=== PATIENT | male | born 1980 | race Caucasian/White ===

== ENCOUNTER 2020-12-05 16:33 | Inpatient (IN) | payer MEDICARE, OTHER ==
[~2020-12-05] VITALS: Ht 182.9 cm; Wt 99.3 kg
[2020-12-06 12:27] VITALS: BP 125/75
[2020-12-06 12:52] VITALS: BP 125/75
[2020-12-06] MEDS ORDERED: MELATONIN 3 MG TABLET PO PRN (13:45)
[2020-12-06] MEDS ORDERED: ACETAMINOPHEN 325 MG TABLET PO PRN (13:45)
[2020-12-06] MEDS ORDERED: DEXTROSE 50%-WATER 25 GM/50 ML SYRINGE IVP PRN (13:45)
[2020-12-06 16:30] VITALS: BP 120/74
[2020-12-06] MEDS: CADEXOMER IODINE 0.9% 40 GM GEL TP SCH ×2 (16:44→21:02)
[2020-12-06] MEDS: ALBUTEROL SULFATE HFA 90 MCG/PUFF 8 GM INHALER IH SCH (16:47)
[2020-12-06] MEDS: INSULIN LISPRO 100 UNITS/ML SQ PRN ×2 (18:03→21:37)
[2020-12-06] MEDS ORDERED: SODIUM CHLORIDE 0.9% 250 ML IV ONE (18:26)
[2020-12-06] MEDS: PIPERACILLIN SODIUM/TAZOBACTAM 4.5 GM in DEXTROSE 5%-WATER 100 ML IV SCH (18:33)
[2020-12-06 19:57] LABS: GLUCOMETER DEV NAME(LOC) 2WR.2B; GLUCOSE,POINT OF CARE 156 MG/DL (70-110)
[2020-12-06] MEDS: BUDESONIDE/FORMOTEROL FUMARATE 80-4.5 MCG/PUFF 10.2 GM INHALER IH SCH (20:59)
[2020-12-06] MEDS: DIAZEPAM 5 MG TABLET PO SCH (20:59)
[2020-12-06] MEDS: BENZTROPINE MESYLATE 2 MG TABLET PO SCH (21:00)
[2020-12-06] MEDS ORDERED: SENNA 187 MG TABLET PO SCH (21:00)
[2020-12-06] MEDS: PROPRANOLOL HCL 40 MG TABLET PO SCH (21:00)
[2020-12-06] MEDS: LamoTRIgine 100 MG TABLET PO SCH (21:01)
[2020-12-06] MEDS: TOPIRAMATE 100 MG TABLET PO SCH (21:01)
[2020-12-06] MEDS: SENNA 187 MG TABLET PO SCH (21:03)
[2020-12-07] MEDS: 0.9% SODIUM CHLORIDE 10 ML SYRINGE IVP SCH ×4 (00:22→23:25)
[2020-12-07] MEDS: ALBUTEROL SULFATE HFA 90 MCG/PUFF 8 GM INHALER IH SCH ×5 (00:23→23:23)
[2020-12-07] MEDS: PIPERACILLIN SODIUM/TAZOBACTAM 4.5 GM in DEXTROSE 5%-WATER 100 ML IV SCH ×4 (01:03→22:14)
[2020-12-07 03:10] LABS: GLUCOMETER DEV NAME(LOC) 2WR.2B; GLUCOSE,POINT OF CARE 156 MG/DL (70-110)
[2020-12-07 05:20] VITALS: BP 108/71
[2020-12-07 05:45] LABS: GLUCOMETER DEV NAME(LOC) 2WR.2B; GLUCOSE,POINT OF CARE 120 MG/DL (70-110)
[2020-12-07] MEDS: MetFORMIN HCL 500 MG ER TABLET PO SCH (07:37)
[2020-12-07] MEDS: PROPRANOLOL HCL 40 MG TABLET PO SCH ×2 (07:37→21:31)
[2020-12-07] MEDS: DIAZEPAM 5 MG TABLET PO SCH ×2 (07:37→21:31)
[2020-12-07] MEDS: INSULIN GLARGINE,HUM.REC.ANLOG 100 UNITS/ML SQ SCH (07:46)
[2020-12-07 07:54] LABS: BASOPHILS % (AUTO) 0.7 % (0.0-2.0); EOSINOPHILS % (AUTO) 2.4 % (1.0-6.0); HEMATOCRIT 37.8 % (41-53); HEMOGLOBIN 12.4 g/dL (13.5-17.5); LYMPHOCYTES # (AUTO) 1.7 K/uL (1.0-4.8); MEAN CORPUSCULAR HGB CONC 32.8 G/dL (31.0-37.0); MEAN CORPUSCULAR VOLUME 85 fL (80-100); MONOCYTES # (AUTO) 0.3 K/uL (0.1-1.0); MONOCYTES % (AUTO) 7.9 % (2.0-9.0); NEUTROPHILS # (AUTO) 1.2 K/uL (1.8-7.7); PLATELET COUNT (AUTO) 302 K/uL (150-450); RED BLOOD CELL COUNT(AUTO) 4.44 MIL/uL (4.50-5.90); RED CELL DISTRIBUTION WIDTH 17.2 % (11.5-14.5)
[2020-12-07] MEDS: BUDESONIDE/FORMOTEROL FUMARATE 80-4.5 MCG/PUFF 10.2 GM INHALER IH SCH ×2 (07:55→21:32)
[2020-12-07 08:24] LABS: ALANINE AMINOTRANSFERASE 37 U/L (12-78); ALBUMIN 3.3 g/dL (3.4-5.0); ALKALINE PHOSPHATASE 76 U/L (46-116); ANION GAP 12 mmol/L (8-16); ASPARTATE AMINOTRANSFERASE 16 U/L (15-37); BILIRUBIN,TOTAL 0.5 mg/dL (0.1-1.0); CALCIUM, TOTAL 8.8 mg/dL (8.8-10.5); CARBON DIOXIDE 23 mmol/L (22-29); CHLORIDE 107 mmol/L (98-107); CREATININE 0.81 mg/dL (0.60-1.30); GLOMERULAR FILTR. RATE CALC > 60 mL/min (>60); GLUCOSE,RANDOM 122 mg/dL (70-110); POTASSIUM 3.9 mmol/L (3.5-5.1); SODIUM SERUM 142 mmol/L (136-145); TOTAL PROTEIN, SERUM 7.1 g/dL (6.4-8.2); UREA NITROGEN, BLOOD 5 mg/dL (7-18)
[2020-12-07] MEDS: NICOTINE 14 MG/24 HOUR PATCH TD SCH (08:25)
[2020-12-07 09:00] VITALS: BP 112/69
[2020-12-07 12:33] LABS: GLUCOMETER DEV NAME(LOC) 2WR.2B; GLUCOSE,POINT OF CARE 124 MG/DL (70-110)
[2020-12-07] MEDS: CADEXOMER IODINE 0.9% 40 GM GEL TP SCH ×3 (12:42→21:32)
[2020-12-07 15:52] VITALS: BP 129/84
[2020-12-07] MEDS ORDERED: CALCIUM CARBONATE 500 MG CHEWABLE TABLET CHEW PRN (16:45)
[2020-12-07 17:16] LABS: GLUCOMETER DEV NAME(LOC) 2WR.1C; GLUCOSE,POINT OF CARE 122 MG/DL (70-110)
[2020-12-07] MEDS: ONDANSETRON HCL 4 MG TABLET PO PRN (17:34)
[2020-12-07 19:30] VITALS: BP 135/68
[2020-12-07] MEDS: BENZTROPINE MESYLATE 2 MG TABLET PO SCH (21:30)
[2020-12-07] MEDS: TOPIRAMATE 100 MG TABLET PO SCH (21:31)
[2020-12-07] MEDS: LamoTRIgine 100 MG TABLET PO SCH (21:31)
[2020-12-07] MEDS: SENNA 187 MG TABLET PO SCH (21:31)
[2020-12-07 22:33] LABS: GLUCOMETER DEV NAME(LOC) 2WR.2B; GLUCOSE,POINT OF CARE 139 MG/DL (70-110)
[2020-12-07 23:55] VITALS: BP 130/72
[2020-12-08] MEDS: ALBUTEROL SULFATE HFA 90 MCG/PUFF 8 GM INHALER IH SCH ×3 (05:43→18:12)
[2020-12-08] MEDS: PIPERACILLIN SODIUM/TAZOBACTAM 4.5 GM in DEXTROSE 5%-WATER 100 ML IV SCH ×3 (05:44→22:07)
[2020-12-08 05:56] LABS: GLUCOMETER DEV NAME(LOC) 2WR.2B; GLUCOSE,POINT OF CARE 129 MG/DL (70-110)
[2020-12-08] MEDS: MetFORMIN HCL 500 MG ER TABLET PO SCH (07:25)
[2020-12-08] MEDS: ASCORBIC ACID 500 MG TABLET PO SCH ×2 (07:26→20:21)
[2020-12-08] MEDS: MULTIVITAMINS WITH MINERALS, THERAPEUTIC TABLET PO SCH (07:27)
[2020-12-08] MEDS: DIAZEPAM 5 MG TABLET PO SCH ×2 (07:27→20:20)
[2020-12-08] MEDS: PROPRANOLOL HCL 40 MG TABLET PO SCH ×2 (07:27→20:19)
[2020-12-08] MEDS: ZINC SULFATE 220 MG CAPSULE PO SCH (07:28)
[2020-12-08] MEDS: 0.9% SODIUM CHLORIDE 10 ML SYRINGE IVP SCH ×2 (07:35→15:29)
[2020-12-08] MEDS: BUDESONIDE/FORMOTEROL FUMARATE 80-4.5 MCG/PUFF 10.2 GM INHALER IH SCH ×2 (07:35→20:19)
[2020-12-08] MEDS: NICOTINE 14 MG/24 HOUR PATCH TD SCH (07:35)
[2020-12-08] MEDS: INSULIN GLARGINE,HUM.REC.ANLOG 100 UNITS/ML SQ SCH (08:15)
[2020-12-08 09:18] VITALS: BP 95/61
[2020-12-08] MEDS: ONDANSETRON HCL 4 MG TABLET PO PRN (10:34)
[2020-12-08] MEDS: CADEXOMER IODINE 0.9% 40 GM GEL TP SCH ×3 (14:12→20:22)
[2020-12-08 16:17] LABS: GLUCOMETER DEV NAME(LOC) 2WR.1C; GLUCOSE,POINT OF CARE 110 MG/DL (70-110)
[2020-12-08 16:36] VITALS: BP 119/79
[2020-12-08 17:49] LABS: GLUCOMETER DEV NAME(LOC) 2WR.2B; GLUCOSE,POINT OF CARE 105 MG/DL (70-110)
[2020-12-08] MEDS: BENZTROPINE MESYLATE 2 MG TABLET PO SCH (20:19)
[2020-12-08] MEDS: TOPIRAMATE 100 MG TABLET PO SCH (20:20)
[2020-12-08] MEDS: SENNA 187 MG TABLET PO SCH (20:20)
[2020-12-08] MEDS: LamoTRIgine 100 MG TABLET PO SCH (20:20)
[2020-12-08] MEDS: TAMSULOSIN HCL 0.4 MG CAPSULE PO SCH (21:55)
[2020-12-08] MEDS: FAMOTIDINE 20 MG TABLET PO SCH (21:56)
[2020-12-08] MEDS: INSULIN LISPRO 100 UNITS/ML SQ PRN (21:59)
[2020-12-08 22:17] VITALS: BP 122/66
[2020-12-08 23:21] LABS: GLUCOMETER DEV NAME(LOC) 2WR.1C; GLUCOSE,POINT OF CARE 154 MG/DL (70-110)
[2020-12-09] MEDS: 0.9% SODIUM CHLORIDE 10 ML SYRINGE IVP SCH ×4 (01:13→23:10)
[2020-12-09] MEDS: ALBUTEROL SULFATE HFA 90 MCG/PUFF 8 GM INHALER IH SCH ×6 (01:14→23:25)
[2020-12-09 04:12] VITALS: BP 106/65
[2020-12-09 05:54] LABS: GLUCOMETER DEV NAME(LOC) 2WR.2B; GLUCOSE,POINT OF CARE 143 MG/DL (70-110)
[2020-12-09] MEDS ORDERED: SODIUM CHLORIDE 0.9% 100 ML ONE (05:57)
[2020-12-09] MEDS: PIPERACILLIN SODIUM/TAZOBACTAM 4.5 GM in DEXTROSE 5%-WATER 100 ML IV SCH ×3 (06:00→22:32)
[2020-12-09] MEDS: ASCORBIC ACID 500 MG TABLET PO SCH ×2 (07:47→20:38)
[2020-12-09] MEDS: MULTIVITAMINS WITH MINERALS, THERAPEUTIC TABLET PO SCH (07:47)
[2020-12-09] MEDS: DIAZEPAM 5 MG TABLET PO SCH ×2 (07:48→20:38)
[2020-12-09] MEDS: PROPRANOLOL HCL 40 MG TABLET PO SCH ×2 (07:48→20:39)
[2020-12-09] MEDS: FAMOTIDINE 20 MG TABLET PO SCH ×2 (07:48→20:39)
[2020-12-09] MEDS: ZINC SULFATE 220 MG CAPSULE PO SCH (07:48)
[2020-12-09] MEDS: MetFORMIN HCL 500 MG ER TABLET PO SCH (07:48)
[2020-12-09] MEDS: BUDESONIDE/FORMOTEROL FUMARATE 80-4.5 MCG/PUFF 10.2 GM INHALER IH SCH ×2 (07:49→20:39)
[2020-12-09] MEDS: NICOTINE 14 MG/24 HOUR PATCH TD SCH (07:50)
[2020-12-09] MEDS: INSULIN LISPRO 100 UNITS/ML SQ PRN (07:59)
[2020-12-09] MEDS: INSULIN GLARGINE,HUM.REC.ANLOG 100 UNITS/ML SQ SCH (08:00)
[2020-12-09] MEDS: CADEXOMER IODINE 0.9% 40 GM GEL TP SCH ×3 (08:47→20:41)
[2020-12-09 08:59] VITALS: BP 104/65
[2020-12-09 09:22] LABS: PROTHROMBIN TIME 11.1 SEC (9.4-11.6)
[2020-12-09 12:55] LABS: GLUCOMETER DEV NAME(LOC) 2WR.2B; GLUCOSE,POINT OF CARE 118 MG/DL (70-110)
[2020-12-09 16:06] VITALS: BP 120/73
[2020-12-09] MEDS ORDERED: *PATIENT'S OWN MED [ENTER DRUG, DOSE, FREQUENCY IN COMMENTS] CLINICAL ONE (16:15)
[2020-12-09 20:20] VITALS: BP 132/90
[2020-12-09] MEDS: TAMSULOSIN HCL 0.4 MG CAPSULE PO SCH (20:38)
[2020-12-09] MEDS: LamoTRIgine 100 MG TABLET PO SCH (20:38)
[2020-12-09] MEDS: BENZTROPINE MESYLATE 2 MG TABLET PO SCH (20:39)
[2020-12-09] MEDS: TOPIRAMATE 100 MG TABLET PO SCH (20:39)
[2020-12-09] MEDS: SENNA 187 MG TABLET PO SCH (20:41)
[2020-12-10 03:00] VITALS: BP 108/65
[2020-12-10 05:21] LABS: GLUCOMETER DEV NAME(LOC) 2WR.1C; GLUCOSE,POINT OF CARE 115 MG/DL (70-110)
[2020-12-10 05:21] LABS: GLUCOMETER DEV NAME(LOC) 2WR.1C; GLUCOSE,POINT OF CARE 105 MG/DL (70-110)
[2020-12-10] MEDS: PIPERACILLIN SODIUM/TAZOBACTAM 4.5 GM in DEXTROSE 5%-WATER 100 ML IV SCH ×3 (05:53→22:24)
[2020-12-10] MEDS: ALBUTEROL SULFATE HFA 90 MCG/PUFF 8 GM INHALER IH SCH ×4 (05:53→23:41)
[2020-12-10 06:07] LABS: GLUCOMETER DEV NAME(LOC) 2WR.1C; GLUCOSE,POINT OF CARE 139 MG/DL (70-110)
[2020-12-10 06:36] LABS: BASOPHILS % (AUTO) 0.6 % (0.0-2.0); EOSINOPHILS % (AUTO) 4.4 % (1.0-6.0); HEMATOCRIT 39.5 % (41-53); HEMOGLOBIN 12.9 g/dL (13.5-17.5); LYMPHOCYTES % (AUTO) 47.5 % (22.0-44.0); MEAN CORPUSCULAR HEMOGLOBIN 28.1 pg (26.0-34.0); MEAN CORPUSCULAR HGB CONC 32.8 G/dL (31.0-37.0); MEAN CORPUSCULAR VOLUME 86 fL (80-100); MONOCYTES # (AUTO) 0.4 K/uL (0.1-1.0); MONOCYTES % (AUTO) 8.5 % (2.0-9.0); NEUTROPHILS # (AUTO) 1.6 K/uL (1.8-7.7); PLATELET COUNT (AUTO) 284 K/uL (150-450); RED BLOOD CELL COUNT(AUTO) 4.61 MIL/uL (4.50-5.90); RED CELL DISTRIBUTION WIDTH 17.3 % (11.5-14.5)
[2020-12-10 06:53] LABS: ALANINE AMINOTRANSFERASE 38 U/L (12-78); ALBUMIN 3.3 g/dL (3.4-5.0); ALKALINE PHOSPHATASE 76 U/L (46-116); ANION GAP 5 mmol/L (8-16); ASPARTATE AMINOTRANSFERASE 15 U/L (15-37); BILIRUBIN,TOTAL 0.5 mg/dL (0.1-1.0); CALCIUM, TOTAL 9.1 mg/dL (8.8-10.5); CARBON DIOXIDE 25 mmol/L (22-29); CHLORIDE 106 mmol/L (98-107); GLOMERULAR FILTR. RATE CALC > 60 mL/min (>60); GLUCOSE,RANDOM 135 mg/dL (70-110); POTASSIUM 3.9 mmol/L (3.5-5.1); SODIUM SERUM 136 mmol/L (136-145); UREA NITROGEN, BLOOD 9 mg/dL (7-18)
[2020-12-10] MEDS: INSULIN GLARGINE,HUM.REC.ANLOG 100 UNITS/ML SQ SCH (08:12)
[2020-12-10] MEDS: EMPAGLIFLOZIN 10 MG PO SCH (08:14)
[2020-12-10] MEDS: MetFORMIN HCL 500 MG ER TABLET PO SCH (08:14)
[2020-12-10] MEDS: MULTIVITAMINS WITH MINERALS, THERAPEUTIC TABLET PO SCH (08:14)
[2020-12-10] MEDS: DIAZEPAM 5 MG TABLET PO SCH ×2 (08:14→20:43)
[2020-12-10] MEDS: BUDESONIDE/FORMOTEROL FUMARATE 80-4.5 MCG/PUFF 10.2 GM INHALER IH SCH ×2 (08:14→20:44)
[2020-12-10] MEDS: ZINC SULFATE 220 MG CAPSULE PO SCH (08:15)
[2020-12-10] MEDS: PROPRANOLOL HCL 40 MG TABLET PO SCH ×2 (08:15→20:44)
[2020-12-10] MEDS: ASCORBIC ACID 500 MG TABLET PO SCH ×2 (08:15→20:44)
[2020-12-10] MEDS: FAMOTIDINE 20 MG TABLET PO SCH ×2 (08:15→20:43)
[2020-12-10] MEDS: NICOTINE 14 MG/24 HOUR PATCH TD SCH (08:20)
[2020-12-10] MEDS: 0.9% SODIUM CHLORIDE 10 ML SYRINGE IVP SCH ×3 (08:21→23:41)
[2020-12-10 09:27] VITALS: BP 127/56
[2020-12-10 12:48] LABS: GLUCOMETER DEV NAME(LOC) 2WR.1C; GLUCOSE,POINT OF CARE 119 MG/DL (70-110)
[2020-12-10 16:00] VITALS: BP 104/60
[2020-12-10 18:17] LABS: GLUCOMETER DEV NAME(LOC) 2WR.2B; GLUCOSE,POINT OF CARE 89 MG/DL (70-110)
[2020-12-10] MEDS: CHLORHEXIDINE GLUCONATE 4% 118 ML TOPICAL LIQUID TP SCH (18:47)
[2020-12-10 20:30] VITALS: BP 131/80
[2020-12-10] MEDS: LamoTRIgine 100 MG TABLET PO SCH (20:44)
[2020-12-10] MEDS: SENNA 187 MG TABLET PO SCH (20:44)
[2020-12-10] MEDS: TAMSULOSIN HCL 0.4 MG CAPSULE PO SCH (20:44)
[2020-12-10] MEDS: BENZTROPINE MESYLATE 2 MG TABLET PO SCH (20:44)
[2020-12-10] MEDS: TOPIRAMATE 100 MG TABLET PO SCH (20:44)
[2020-12-10 21:58] LABS: GLUCOMETER DEV NAME(LOC) 2WR.2B; GLUCOSE,POINT OF CARE 102 MG/DL (70-110)
[2020-12-10 23:51] VITALS: BP 109/47
[2020-12-11 05:53] LABS: GLUCOMETER DEV NAME(LOC) 2WR.2B; GLUCOSE,POINT OF CARE 121 MG/DL (70-110)
[2020-12-11] MEDS: ALBUTEROL SULFATE HFA 90 MCG/PUFF 8 GM INHALER IH SCH ×4 (06:21→23:03)
[2020-12-11] MEDS: PIPERACILLIN SODIUM/TAZOBACTAM 4.5 GM in DEXTROSE 5%-WATER 100 ML IV SCH ×3 (06:22→22:08)
[2020-12-11 07:08] VITALS: BP 112/75
[2020-12-11] MEDS: ASCORBIC ACID 500 MG TABLET PO SCH ×2 (07:48→20:22)
[2020-12-11] MEDS: FAMOTIDINE 20 MG TABLET PO SCH ×2 (07:48→20:22)
[2020-12-11] MEDS: 0.9% SODIUM CHLORIDE 10 ML SYRINGE IVP SCH ×3 (07:48→23:03)
[2020-12-11] MEDS: EMPAGLIFLOZIN 10 MG PO SCH (07:49)
[2020-12-11] MEDS: ZINC SULFATE 220 MG CAPSULE PO SCH (07:49)
[2020-12-11] MEDS: MULTIVITAMINS WITH MINERALS, THERAPEUTIC TABLET PO SCH (07:49)
[2020-12-11] MEDS: DIAZEPAM 5 MG TABLET PO SCH ×2 (07:49→20:23)
[2020-12-11] MEDS: PROPRANOLOL HCL 40 MG TABLET PO SCH ×2 (07:50→20:23)
[2020-12-11] MEDS: MetFORMIN HCL 500 MG ER TABLET PO SCH (07:50)
[2020-12-11] MEDS: BUDESONIDE/FORMOTEROL FUMARATE 80-4.5 MCG/PUFF 10.2 GM INHALER IH SCH ×2 (07:50→20:23)
[2020-12-11] MEDS: NICOTINE 14 MG/24 HOUR PATCH TD SCH (07:51)
[2020-12-11] MEDS: INSULIN GLARGINE,HUM.REC.ANLOG 100 UNITS/ML SQ SCH (07:53)
[2020-12-11] MEDS ORDERED: CADEXOMER IODINE 0.9% 40 GM GEL TP SCH (09:00)
[2020-12-11] MEDS: PALIPERIDONE 6 MG ER TABLET PO SCH (11:33)
[2020-12-11 13:31] LABS: GLUCOMETER DEV NAME(LOC) 2WR.2B; GLUCOSE,POINT OF CARE 111 MG/DL (70-110)
[2020-12-11] MEDS ORDERED: SODIUM CHLORIDE 0.9% 100 ML ONE (15:33)
[2020-12-11 16:23] VITALS: BP 132/89
[2020-12-11 17:47] LABS: GLUCOMETER DEV NAME(LOC) 2WR.2B; GLUCOSE,POINT OF CARE 125 MG/DL (70-110)
[2020-12-11] MEDS: CHLORHEXIDINE GLUCONATE 4% 118 ML TOPICAL LIQUID TP SCH (18:33)
[2020-12-11] MEDS: LamoTRIgine 100 MG TABLET PO SCH (20:22)
[2020-12-11] MEDS: SENNA 187 MG TABLET PO SCH (20:22)
[2020-12-11] MEDS: TOPIRAMATE 100 MG TABLET PO SCH (20:22)
[2020-12-11] MEDS: BENZTROPINE MESYLATE 2 MG TABLET PO SCH (20:23)
[2020-12-11] MEDS: TAMSULOSIN HCL 0.4 MG CAPSULE PO SCH (20:23)
[2020-12-11] MEDS: ETHYL ALCOHOL 62% ANTISEPTIC NASAL INHALANT 0.6 ML AMPUL NASAL SCH (20:37)
[2020-12-11 20:39] VITALS: BP 118/75
[2020-12-11 22:17] LABS: GLUCOMETER DEV NAME(LOC) 2WR.2B; GLUCOSE,POINT OF CARE 125 MG/DL (70-110)
[2020-12-12 05:00] VITALS: BP 98/57
[2020-12-12] MEDS: ALBUTEROL SULFATE HFA 90 MCG/PUFF 8 GM INHALER IH SCH ×4 (05:32→23:18)
[2020-12-12] MEDS: PIPERACILLIN SODIUM/TAZOBACTAM 4.5 GM in DEXTROSE 5%-WATER 100 ML IV SCH ×3 (05:32→22:27)
[2020-12-12 05:43] LABS: GLUCOMETER DEV NAME(LOC) 2WR.1C; GLUCOSE,POINT OF CARE 127 MG/DL (70-110)
[2020-12-12] MEDS: EMPAGLIFLOZIN 10 MG PO SCH (08:11)
[2020-12-12] MEDS: 0.9% SODIUM CHLORIDE 10 ML SYRINGE IVP SCH ×3 (08:11→23:18)
[2020-12-12] MEDS: MULTIVITAMINS WITH MINERALS, THERAPEUTIC TABLET PO SCH (08:11)
[2020-12-12] MEDS: ASCORBIC ACID 500 MG TABLET PO SCH ×2 (08:11→20:13)
[2020-12-12] MEDS: PROPRANOLOL HCL 40 MG TABLET PO SCH ×2 (08:11→20:13)
[2020-12-12] MEDS: FAMOTIDINE 20 MG TABLET PO SCH ×2 (08:11→20:13)
[2020-12-12] MEDS: DIAZEPAM 5 MG TABLET PO SCH ×2 (08:11→20:13)
[2020-12-12] MEDS: ZINC SULFATE 220 MG CAPSULE PO SCH (08:12)
[2020-12-12] MEDS: PALIPERIDONE 6 MG ER TABLET PO SCH (08:12)
[2020-12-12] MEDS: MetFORMIN HCL 500 MG ER TABLET PO SCH (08:12)
[2020-12-12] MEDS: ETHYL ALCOHOL 62% ANTISEPTIC NASAL INHALANT 0.6 ML AMPUL NASAL SCH ×2 (08:13→20:13)
[2020-12-12] MEDS: BUDESONIDE/FORMOTEROL FUMARATE 80-4.5 MCG/PUFF 10.2 GM INHALER IH SCH ×2 (08:13→20:12)
[2020-12-12] MEDS: NICOTINE 14 MG/24 HOUR PATCH TD SCH (08:14)
[2020-12-12] MEDS: INSULIN GLARGINE,HUM.REC.ANLOG 100 UNITS/ML SQ SCH (08:17)
[2020-12-12 08:26] VITALS: BP 108/64
[2020-12-12] MEDS ORDERED: COVID-19 VACCINE, MRNA(PFIZER)/PF 30 MCG/0.3 ML VIAL IM. ONE (10:47)
[2020-12-12 14:44] LABS: GLUCOMETER DEV NAME(LOC) 2WR.1C; GLUCOSE,POINT OF CARE 118 MG/DL (70-110)
[2020-12-12 17:14] VITALS: BP 103/58
[2020-12-12] MEDS: CHLORHEXIDINE GLUCONATE 4% 118 ML TOPICAL LIQUID TP SCH (17:51)
[2020-12-12 18:52] LABS: GLUCOMETER DEV NAME(LOC) 2WR.1C; GLUCOSE,POINT OF CARE 122 MG/DL (70-110)
[2020-12-12] MEDS: BENZTROPINE MESYLATE 2 MG TABLET PO SCH (20:12)
[2020-12-12] MEDS: TOPIRAMATE 100 MG TABLET PO SCH (20:12)
[2020-12-12] MEDS: SENNA 187 MG TABLET PO SCH (20:13)
[2020-12-12] MEDS: LamoTRIgine 100 MG TABLET PO SCH (20:13)
[2020-12-12] MEDS: TAMSULOSIN HCL 0.4 MG CAPSULE PO SCH (20:13)
[2020-12-12 21:53] LABS: GLUCOMETER DEV NAME(LOC) 2WR.1C; GLUCOSE,POINT OF CARE 136 MG/DL (70-110)
[2020-12-13 03:00] VITALS: BP 103/71
[2020-12-13] MEDS: PIPERACILLIN SODIUM/TAZOBACTAM 4.5 GM in DEXTROSE 5%-WATER 100 ML IV SCH ×3 (05:47→23:02)
[2020-12-13] MEDS: ALBUTEROL SULFATE HFA 90 MCG/PUFF 8 GM INHALER IH SCH ×3 (05:47→18:47)
[2020-12-13 08:10] VITALS: BP 102/58
[2020-12-13] MEDS: MetFORMIN HCL 500 MG ER TABLET PO SCH (08:10)
[2020-12-13] MEDS: BUDESONIDE/FORMOTEROL FUMARATE 80-4.5 MCG/PUFF 10.2 GM INHALER IH SCH ×2 (08:11→21:29)
[2020-12-13] MEDS: ETHYL ALCOHOL 62% ANTISEPTIC NASAL INHALANT 0.6 ML AMPUL NASAL SCH ×2 (08:11→21:31)
[2020-12-13] MEDS: EMPAGLIFLOZIN 10 MG PO SCH (08:11)
[2020-12-13] MEDS: FAMOTIDINE 20 MG TABLET PO SCH ×2 (08:12→21:30)
[2020-12-13] MEDS: PALIPERIDONE 6 MG ER TABLET PO SCH (08:12)
[2020-12-13] MEDS: PROPRANOLOL HCL 40 MG TABLET PO SCH ×2 (08:12→21:30)
[2020-12-13] MEDS: MULTIVITAMINS WITH MINERALS, THERAPEUTIC TABLET PO SCH (08:12)
[2020-12-13] MEDS: ASCORBIC ACID 500 MG TABLET PO SCH ×2 (08:13→21:30)
[2020-12-13] MEDS: DIAZEPAM 5 MG TABLET PO SCH ×2 (08:13→21:30)
[2020-12-13] MEDS: ZINC SULFATE 220 MG CAPSULE PO SCH (08:13)
[2020-12-13] MEDS: 0.9% SODIUM CHLORIDE 10 ML SYRINGE IVP SCH ×3 (08:15→23:03)
[2020-12-13] MEDS: NICOTINE 14 MG/24 HOUR PATCH TD SCH (08:15)
[2020-12-13] MEDS: INSULIN GLARGINE,HUM.REC.ANLOG 100 UNITS/ML SQ SCH (08:21)
[2020-12-13] MEDS: INSULIN LISPRO 100 UNITS/ML SQ PRN ×2 (12:21→18:55)
[2020-12-13 16:00] VITALS: BP 122/76
[2020-12-13] MEDS: CHLORHEXIDINE GLUCONATE 4% 118 ML TOPICAL LIQUID TP SCH (18:48)
[2020-12-13 19:07] LABS: GLUCOMETER DEV NAME(LOC) 2WR.1C; GLUCOSE,POINT OF CARE 124 MG/DL (70-110)
[2020-12-13 19:07] LABS: GLUCOMETER DEV NAME(LOC) 2WR.2B; GLUCOSE,POINT OF CARE 177 MG/DL (70-110)
[2020-12-13 19:08] LABS: GLUCOMETER DEV NAME(LOC) 2WR.1C; GLUCOSE,POINT OF CARE 143 MG/DL (70-110)
[2020-12-13] MEDS: TAMSULOSIN HCL 0.4 MG CAPSULE PO SCH (21:30)
[2020-12-13] MEDS: LamoTRIgine 100 MG TABLET PO SCH (21:30)
[2020-12-13] MEDS: BENZTROPINE MESYLATE 2 MG TABLET PO SCH (21:30)
[2020-12-13] MEDS: SENNA 187 MG TABLET PO SCH (21:30)
[2020-12-13] MEDS: TOPIRAMATE 100 MG TABLET PO SCH (21:31)
[2020-12-14 00:31] VITALS: BP 118/70
[2020-12-14 03:05] LABS: GLUCOMETER DEV NAME(LOC) 2WR.1C; GLUCOSE,POINT OF CARE 123 MG/DL (70-110)
[2020-12-14] MEDS: ALBUTEROL SULFATE HFA 90 MCG/PUFF 8 GM INHALER IH SCH ×5 (05:59→23:09)
[2020-12-14] MEDS: PIPERACILLIN SODIUM/TAZOBACTAM 4.5 GM in DEXTROSE 5%-WATER 100 ML IV SCH ×3 (06:00→23:07)
[2020-12-14 06:19] LABS: GLUCOMETER DEV NAME(LOC) 2WR.2B; GLUCOSE,POINT OF CARE 122 MG/DL (70-110)
[2020-12-14] MEDS: FAMOTIDINE 20 MG TABLET PO SCH ×2 (07:49→21:11)
[2020-12-14] MEDS: DIAZEPAM 5 MG TABLET PO SCH ×2 (07:49→21:12)
[2020-12-14] MEDS: MULTIVITAMINS WITH MINERALS, THERAPEUTIC TABLET PO SCH (07:49)
[2020-12-14] MEDS: MetFORMIN HCL 500 MG ER TABLET PO SCH (07:49)
[2020-12-14] MEDS: ETHYL ALCOHOL 62% ANTISEPTIC NASAL INHALANT 0.6 ML AMPUL NASAL SCH ×2 (07:49→21:10)
[2020-12-14] MEDS: BUDESONIDE/FORMOTEROL FUMARATE 80-4.5 MCG/PUFF 10.2 GM INHALER IH SCH ×2 (07:49→21:12)
[2020-12-14] MEDS: EMPAGLIFLOZIN 10 MG PO SCH (07:49)
[2020-12-14] MEDS: ASCORBIC ACID 500 MG TABLET PO SCH ×2 (07:49→21:12)
[2020-12-14] MEDS: PROPRANOLOL HCL 40 MG TABLET PO SCH ×2 (07:50→21:12)
[2020-12-14] MEDS: PALIPERIDONE 6 MG ER TABLET PO SCH (07:50)
[2020-12-14] MEDS: ZINC SULFATE 220 MG CAPSULE PO SCH (07:50)
[2020-12-14] MEDS: NICOTINE 14 MG/24 HOUR PATCH TD SCH (07:51)
[2020-12-14] MEDS: 0.9% SODIUM CHLORIDE 10 ML SYRINGE IVP SCH ×3 (07:51→23:09)
[2020-12-14] MEDS: INSULIN GLARGINE,HUM.REC.ANLOG 100 UNITS/ML SQ SCH (07:54)
[2020-12-14 08:05] VITALS: BP 102/71
[2020-12-14 16:59] VITALS: BP 117/76
[2020-12-14] MEDS: CHLORHEXIDINE GLUCONATE 4% 118 ML TOPICAL LIQUID TP SCH (17:18)
[2020-12-14] MEDS: TOPIRAMATE 100 MG TABLET PO SCH (21:11)
[2020-12-14] MEDS: SENNA 187 MG TABLET PO SCH (21:11)
[2020-12-14] MEDS: LamoTRIgine 100 MG TABLET PO SCH (21:12)
[2020-12-14] MEDS: TAMSULOSIN HCL 0.4 MG CAPSULE PO SCH (21:12)
[2020-12-14] MEDS: BENZTROPINE MESYLATE 2 MG TABLET PO SCH (21:12)
[2020-12-14] MEDS ORDERED: SODIUM CHLORIDE 0.9% 100 ML ONE (23:11)
[2020-12-14 23:53] LABS: GLUCOMETER DEV NAME(LOC) 2WR.1C; GLUCOSE,POINT OF CARE 107 MG/DL (70-110)
[2020-12-14 23:53] LABS: GLUCOMETER DEV NAME(LOC) 2WR.1C; GLUCOSE,POINT OF CARE 135 MG/DL (70-110)
[2020-12-14 23:53] LABS: GLUCOMETER DEV NAME(LOC) 2WR.1C; GLUCOSE,POINT OF CARE 100 MG/DL (70-110)
[2020-12-15] VITALS: BP 110/72
[2020-12-15] MEDS: ALBUTEROL SULFATE HFA 90 MCG/PUFF 8 GM INHALER IH SCH ×3 (05:54→18:08)
[2020-12-15] MEDS: PIPERACILLIN SODIUM/TAZOBACTAM 4.5 GM in DEXTROSE 5%-WATER 100 ML IV SCH ×3 (06:02→22:58)
[2020-12-15 06:07] LABS: GLUCOMETER DEV NAME(LOC) 2WR.1C; GLUCOSE,POINT OF CARE 127 MG/DL (70-110)
[2020-12-15] MEDS: FAMOTIDINE 20 MG TABLET PO SCH ×2 (08:01→20:50)
[2020-12-15] MEDS: EMPAGLIFLOZIN 10 MG PO SCH (08:01)
[2020-12-15] MEDS: ASCORBIC ACID 500 MG TABLET PO SCH ×2 (08:01→20:49)
[2020-12-15] MEDS: MULTIVITAMINS WITH MINERALS, THERAPEUTIC TABLET PO SCH (08:01)
[2020-12-15] MEDS: DIAZEPAM 5 MG TABLET PO SCH ×3 (08:01→20:56)
[2020-12-15] MEDS: PROPRANOLOL HCL 40 MG TABLET PO SCH ×2 (08:02→20:49)
[2020-12-15] MEDS: MetFORMIN HCL 500 MG ER TABLET PO SCH (08:02)
[2020-12-15] MEDS: ZINC SULFATE 220 MG CAPSULE PO SCH (08:02)
[2020-12-15] MEDS: BUDESONIDE/FORMOTEROL FUMARATE 80-4.5 MCG/PUFF 10.2 GM INHALER IH SCH ×2 (08:02→20:48)
[2020-12-15] MEDS: ETHYL ALCOHOL 62% ANTISEPTIC NASAL INHALANT 0.6 ML AMPUL NASAL SCH ×2 (08:02→20:48)
[2020-12-15] MEDS: 0.9% SODIUM CHLORIDE 10 ML SYRINGE IVP SCH ×3 (08:03→22:58)
[2020-12-15] MEDS: NICOTINE 14 MG/24 HOUR PATCH TD SCH (08:04)
[2020-12-15] MEDS: PALIPERIDONE 6 MG ER TABLET PO SCH (08:04)
[2020-12-15] MEDS: INSULIN GLARGINE,HUM.REC.ANLOG 100 UNITS/ML SQ SCH (08:43)
[2020-12-15 09:13] VITALS: BP 103/67
[2020-12-15] MEDS: INSULIN LISPRO 100 UNITS/ML SQ PRN (12:20)
[2020-12-15 12:40] LABS: GLUCOMETER DEV NAME(LOC) 2WR.1C; GLUCOSE,POINT OF CARE 145 MG/DL (70-110)
[2020-12-15 16:01] VITALS: BP 106/71
[2020-12-15] MEDS: CHLORHEXIDINE GLUCONATE 4% 118 ML TOPICAL LIQUID TP SCH (18:18)
[2020-12-15 19:25] LABS: GLUCOMETER DEV NAME(LOC) 2WR.2B; GLUCOSE,POINT OF CARE 102 MG/DL (70-110)
[2020-12-15 20:45] VITALS: BP 114/69
[2020-12-15] MEDS: BENZTROPINE MESYLATE 2 MG TABLET PO SCH (20:49)
[2020-12-15] MEDS: TAMSULOSIN HCL 0.4 MG CAPSULE PO SCH (20:49)
[2020-12-15] MEDS: SENNA 187 MG TABLET PO SCH (20:49)
[2020-12-15] MEDS: TOPIRAMATE 100 MG TABLET PO SCH (20:49)
[2020-12-15] MEDS: LamoTRIgine 100 MG TABLET PO SCH (20:49)
[2020-12-16 03:00] VITALS: BP 98/58
[2020-12-16 04:36] LABS: GLUCOMETER DEV NAME(LOC) 2WR.1C; GLUCOSE,POINT OF CARE 128 MG/DL (70-110)
[2020-12-16] MEDS: ALBUTEROL SULFATE HFA 90 MCG/PUFF 8 GM INHALER IH SCH ×5 (05:31→23:26)
[2020-12-16] MEDS: PIPERACILLIN SODIUM/TAZOBACTAM 4.5 GM in DEXTROSE 5%-WATER 100 ML IV SCH ×3 (06:04→23:25)
[2020-12-16] MEDS: MetFORMIN HCL 500 MG ER TABLET PO SCH (07:57)
[2020-12-16] MEDS: 0.9% SODIUM CHLORIDE 10 ML SYRINGE IVP SCH ×3 (07:58→23:29)
[2020-12-16 08:00] VITALS: BP 112/68
[2020-12-16] MEDS: BUDESONIDE/FORMOTEROL FUMARATE 80-4.5 MCG/PUFF 10.2 GM INHALER IH SCH ×2 (08:02→20:11)
[2020-12-16] MEDS: PALIPERIDONE 6 MG ER TABLET PO SCH (08:03)
[2020-12-16] MEDS: FAMOTIDINE 20 MG TABLET PO SCH ×2 (08:03→20:12)
[2020-12-16] MEDS: PROPRANOLOL HCL 40 MG TABLET PO SCH ×2 (08:03→20:12)
[2020-12-16] MEDS: MULTIVITAMINS WITH MINERALS, THERAPEUTIC TABLET PO SCH (08:03)
[2020-12-16] MEDS: ETHYL ALCOHOL 62% ANTISEPTIC NASAL INHALANT 0.6 ML AMPUL NASAL SCH ×2 (08:03→20:11)
[2020-12-16] MEDS: EMPAGLIFLOZIN 10 MG PO SCH (08:03)
[2020-12-16] MEDS: ASCORBIC ACID 500 MG TABLET PO SCH ×2 (08:04→20:11)
[2020-12-16] MEDS: ZINC SULFATE 220 MG CAPSULE PO SCH (08:04)
[2020-12-16] MEDS: DIAZEPAM 5 MG TABLET PO SCH ×2 (08:04→20:12)
[2020-12-16] MEDS: NICOTINE 14 MG/24 HOUR PATCH TD SCH (08:06)
[2020-12-16] MEDS: INSULIN GLARGINE,HUM.REC.ANLOG 100 UNITS/ML SQ SCH (08:08)
[2020-12-16 08:10] VITALS: BP 112/68
[2020-12-16 11:07] LABS: BASOPHILS % (AUTO) 0.6 % (0.0-2.0); EOSINOPHILS % (AUTO) 6.4 % (1.0-6.0); HEMATOCRIT 42.4 % (41-53); HEMOGLOBIN 13.8 g/dL (13.5-17.5); LYMPHOCYTES # (AUTO) 1.9 K/uL (1.0-4.8); LYMPHOCYTES % (AUTO) 42.3 % (22.0-44.0); MEAN CORPUSCULAR HEMOGLOBIN 27.7 pg (26.0-34.0); MEAN CORPUSCULAR HGB CONC 32.4 G/dL (31.0-37.0); MEAN CORPUSCULAR VOLUME 85 fL (80-100); MONOCYTES # (AUTO) 0.4 K/uL (0.1-1.0); NEUTROPHILS # (AUTO) 1.9 K/uL (1.8-7.7); NEUTROPHILS % (AUTO) 42.7 % (40.0-70.0); PLATELET COUNT (AUTO) 289 K/uL (150-450); RED BLOOD CELL COUNT(AUTO) 4.97 MIL/uL (4.50-5.90); RED CELL DISTRIBUTION WIDTH 16.5 % (11.5-14.5)
[2020-12-16 11:42] LABS: ALANINE AMINOTRANSFERASE 40 U/L (12-78); ALBUMIN 3.8 g/dL (3.4-5.0); ALKALINE PHOSPHATASE 87 U/L (46-116); ANION GAP 10 mmol/L (8-16); ASPARTATE AMINOTRANSFERASE 16 U/L (15-37); BILIRUBIN,TOTAL 0.5 mg/dL (0.1-1.0); C-REACTIVE PROTEIN QUANT 0.64 mg/dL (0.00-0.30); CALCIUM, TOTAL 9.4 mg/dL (8.8-10.5); CARBON DIOXIDE 26 mmol/L (22-29); CHLORIDE 102 mmol/L (98-107); CREATININE 0.92 mg/dL (0.60-1.30); GLOMERULAR FILTR. RATE CALC > 60 mL/min (>60); GLUCOSE,RANDOM 107 mg/dL (70-110); POTASSIUM 4.4 mmol/L (3.5-5.1); SODIUM SERUM 138 mmol/L (136-145); UREA NITROGEN, BLOOD 8 mg/dL (7-18)
[2020-12-16 12:09] LABS: ERYTHROCYTE SEDIMENTATION RATE 25 MM/HR (0-15)
[2020-12-16 12:35] LABS: GLUCOMETER DEV NAME(LOC) 2WR.1C; GLUCOSE,POINT OF CARE 116 MG/DL (70-110)
[2020-12-16 12:35] LABS: GLUCOMETER DEV NAME(LOC) 2WR.2B; GLUCOSE,POINT OF CARE 105 MG/DL (70-110)
[2020-12-16 17:12] VITALS: BP 98/63
[2020-12-16 18:55] LABS: GLUCOMETER DEV NAME(LOC) 2WR.2B; GLUCOSE,POINT OF CARE 111 MG/DL (70-110)
[2020-12-16] MEDS: CHLORHEXIDINE GLUCONATE 4% 118 ML TOPICAL LIQUID TP SCH (20:11)
[2020-12-16] MEDS: BENZTROPINE MESYLATE 2 MG TABLET PO SCH (20:12)
[2020-12-16] MEDS: TAMSULOSIN HCL 0.4 MG CAPSULE PO SCH (20:12)
[2020-12-16] MEDS: LamoTRIgine 100 MG TABLET PO SCH (20:12)
[2020-12-16 20:15] VITALS: BP 106/68
[2020-12-16] MEDS: SENNA 187 MG TABLET PO SCH (20:15)
[2020-12-16] MEDS: INSULIN LISPRO 100 UNITS/ML SQ PRN (20:26)
[2020-12-16] MEDS: TOPIRAMATE 100 MG TABLET PO SCH (21:04)
[2020-12-16] MEDS ORDERED: [UNRECOGNIZED DRUG - CODE] IV (22:24)
[2020-12-16] MEDS ORDERED: TAMS-13 PO (22:24)
[2020-12-16] MEDS ORDERED: TOPI100T37 PO (22:24)
[2020-12-16] MEDS ORDERED: INSLAN SQ (22:24)
[2020-12-16] MEDS ORDERED: BENZ2TAB10 PO (22:24)
[2020-12-16] MEDS ORDERED: ALBU8HFA IH (22:24)
[2020-12-16] MEDS ORDERED: DIAZ5TAB5 PO (22:24)
[2020-12-16] MEDS ORDERED: DIAZ10 PO (22:24)
[2020-12-16] MEDS ORDERED: METF-911 PO (22:24)
[2020-12-16] MEDS ORDERED: ASCO500 PO (22:24)
[2020-12-16] MEDS ORDERED: BUDE10.27 IH (22:24)
[2020-12-16] MEDS ORDERED: EMPA10TA PO (22:24)
[2020-12-16] MEDS ORDERED: PROP40TA7 PO (22:24)
[2020-12-16] MEDS ORDERED: FAMO20 PO (22:24)
[2020-12-16] MEDS ORDERED: NICO-703 TD (22:24)
[2020-12-16] MEDS ORDERED: MULT-248 PO (22:24)
[2020-12-16] MEDS ORDERED: PALI6TAB15 PO (22:24)
[2020-12-16] MEDS ORDERED: INSU100V SQ (22:24)
[2020-12-16] MEDS ORDERED: LAMO100 PO (22:24)
[2020-12-16 23:31] LABS: GLUCOMETER DEV NAME(LOC) 2WR.2B; GLUCOSE,POINT OF CARE 143 MG/DL (70-110)
[2020-12-17] VITALS: BP 105/60
[2020-12-17] MEDS: ALBUTEROL SULFATE HFA 90 MCG/PUFF 8 GM INHALER IH SCH ×4 (05:59→23:24)
[2020-12-17 06:04] LABS: GLUCOMETER DEV NAME(LOC) 2WR.2B; GLUCOSE,POINT OF CARE 128 MG/DL (70-110)
[2020-12-17] MEDS: PIPERACILLIN SODIUM/TAZOBACTAM 4.5 GM in DEXTROSE 5%-WATER 100 ML IV SCH ×3 (06:05→22:24)
[2020-12-17 08:40] VITALS: BP 101/59
[2020-12-17] MEDS: ASCORBIC ACID 500 MG TABLET PO SCH ×2 (09:07→20:15)
[2020-12-17] MEDS: FAMOTIDINE 20 MG TABLET PO SCH ×2 (09:07→20:16)
[2020-12-17] MEDS: ETHYL ALCOHOL 62% ANTISEPTIC NASAL INHALANT 0.6 ML AMPUL NASAL SCH ×2 (09:07→20:16)
[2020-12-17] MEDS: MULTIVITAMINS WITH MINERALS, THERAPEUTIC TABLET PO SCH (09:07)
[2020-12-17] MEDS: EMPAGLIFLOZIN 10 MG PO SCH (09:07)
[2020-12-17] MEDS: BUDESONIDE/FORMOTEROL FUMARATE 80-4.5 MCG/PUFF 10.2 GM INHALER IH SCH ×2 (09:07→20:16)
[2020-12-17] MEDS: PROPRANOLOL HCL 40 MG TABLET PO SCH ×2 (09:08→20:16)
[2020-12-17] MEDS: PALIPERIDONE 6 MG ER TABLET PO SCH (09:08)
[2020-12-17] MEDS: ZINC SULFATE 220 MG CAPSULE PO SCH (09:08)
[2020-12-17] MEDS: MetFORMIN HCL 500 MG ER TABLET PO SCH (09:08)
[2020-12-17] MEDS: NICOTINE 14 MG/24 HOUR PATCH TD SCH (09:10)
[2020-12-17] MEDS: 0.9% SODIUM CHLORIDE 10 ML SYRINGE IVP SCH ×3 (09:11→23:24)
[2020-12-17] MEDS: INSULIN GLARGINE,HUM.REC.ANLOG 100 UNITS/ML SQ SCH (09:13)
[2020-12-17 14:17] LABS: GLUCOMETER DEV NAME(LOC) 2WR.2B; GLUCOSE,POINT OF CARE 132 MG/DL (70-110)
[2020-12-17 16:08] VITALS: BP 108/69
[2020-12-17] MEDS ORDERED: SODIUM CHLORIDE 0.9% 100 ML ONE (16:59)
[2020-12-17] MEDS: CHLORHEXIDINE GLUCONATE 4% 118 ML TOPICAL LIQUID TP SCH (17:59)
[2020-12-17 18:35] LABS: GLUCOMETER DEV NAME(LOC) 2WR.1C; GLUCOSE,POINT OF CARE 134 MG/DL (70-110)
[2020-12-17] MEDS: SENNA 187 MG TABLET PO SCH (20:15)
[2020-12-17] MEDS: BENZTROPINE MESYLATE 2 MG TABLET PO SCH (20:15)
[2020-12-17] MEDS: TAMSULOSIN HCL 0.4 MG CAPSULE PO SCH (20:15)
[2020-12-17] MEDS: TOPIRAMATE 100 MG TABLET PO SCH (20:15)
[2020-12-17] MEDS: LamoTRIgine 100 MG TABLET PO SCH (20:16)
[2020-12-17] MEDS: DIAZEPAM 5 MG TABLET PO SCH (20:16)
[2020-12-17 20:19] VITALS: BP 112/54
[2020-12-18] VITALS: BP 92/55
[2020-12-18] MEDS: ALBUTEROL SULFATE HFA 90 MCG/PUFF 8 GM INHALER IH SCH ×2 (06:14→11:49)
[2020-12-18] MEDS: PIPERACILLIN SODIUM/TAZOBACTAM 4.5 GM in DEXTROSE 5%-WATER 100 ML IV SCH (06:15)
[2020-12-18] MEDS: MetFORMIN HCL 500 MG ER TABLET PO SCH (08:25)
[2020-12-18] MEDS: BUDESONIDE/FORMOTEROL FUMARATE 80-4.5 MCG/PUFF 10.2 GM INHALER IH SCH (08:26)
[2020-12-18] MEDS: ETHYL ALCOHOL 62% ANTISEPTIC NASAL INHALANT 0.6 ML AMPUL NASAL SCH (08:27)
[2020-12-18] MEDS: PROPRANOLOL HCL 40 MG TABLET PO SCH (08:27)
[2020-12-18] MEDS: 0.9% SODIUM CHLORIDE 10 ML SYRINGE IVP SCH (08:27)
[2020-12-18] MEDS: EMPAGLIFLOZIN 10 MG PO SCH (08:27)
[2020-12-18] MEDS: PALIPERIDONE 6 MG ER TABLET PO SCH (08:28)
[2020-12-18] MEDS: ASCORBIC ACID 500 MG TABLET PO SCH (08:28)
[2020-12-18] MEDS: NICOTINE 14 MG/24 HOUR PATCH TD SCH (08:28)
[2020-12-18] MEDS: FAMOTIDINE 20 MG TABLET PO SCH (08:28)
[2020-12-18] MEDS: MULTIVITAMINS WITH MINERALS, THERAPEUTIC TABLET PO SCH (08:28)
[2020-12-18] MEDS: INSULIN GLARGINE,HUM.REC.ANLOG 100 UNITS/ML SQ SCH (08:35)
[2020-12-18] MEDS: INSULIN LISPRO 100 UNITS/ML SQ PRN (08:36)
[2020-12-18] MEDS ORDERED: DIAZEPAM 5 MG TABLET PO SCH (09:00)
[2020-12-18] MEDS ORDERED: ZINC220C14 PO (09:43)
[2020-12-18 10:01] VITALS: BP 105/59
[2020-12-18 13:12] LABS: GLUCOMETER DEV NAME(LOC) 2WR.2B; GLUCOSE,POINT OF CARE 110 MG/DL (70-110)
[2020-12-18 16:03] LABS: GLUCOMETER DEV NAME(LOC) 2WR.1C; GLUCOSE,POINT OF CARE 148 MG/DL (70-110)
== END 2020-12-18 13:00 | disposition home health service (06) | DRG 637 ==
LOC: 2WR 12-06 11:50
PROVIDERS: ADMIT Physical Medicine & Rehabilitation; ATTEND Physical Medicine & Rehabilitation
DX: E11.69 Type 2 diabetes mellitus with other specified complication (principal); M72.6 Necrotizing fasciitis; E46 Unspecified protein-calorie malnutrition; M86.8X7 Other osteomyelitis, ankle and foot; F25.9 Schizoaffective disorder, unspecified; F17.210 Nicotine dependence, cigarettes, uncomplicated; G40.909 Epilepsy, unspecified, not intractable, without status epilepticus; G47.00 Insomnia, unspecified; E11.40 Type 2 diabetes mellitus with diabetic neuropathy, unspecified; E11.621 Type 2 diabetes mellitus with foot ulcer; I10 Essential (primary) hypertension; L97.529 Non-pressure chronic ulcer of other part of left foot with unspecified severity; Z79.2 Long term (current) use of antibiotics; Z79.4 Long term (current) use of insulin; Z89.511 Acquired absence of right leg below knee; Z89.611 Acquired absence of right leg above knee; E66.9 Obesity, unspecified; R33.9 Retention of urine, unspecified; K59.00 Constipation, unspecified; Z68.29 Body mass index [BMI] 29.0-29.9, adult; D63.8 Anemia in other chronic diseases classified elsewhere
CPT/HCPCS: 0002A; 36245; 36569; 71045; 76937; 80053; 82962; 85025; 85610; 85651; 86140; 87081; 91300; 92507; 92522; 97110; 97116; 97163; 97167; 97530; 97535; 99366; 99368; J1815; J2543; J3535; J7050; J7060; Q0162; Q9967; 36415-L1; 36415-TC